=== PATIENT | female | born 1935 | race Two or more races ===

== ENCOUNTER 2021-05-01 16:47 | Inpatient (IN) | payer MEDICARE, MEDICAID ==
[~2021-05-01] VITALS: Ht 167.6 cm; Wt 50.8 kg
[2021-05-01 16:47] VITALS: BP 126/69
[2021-05-01 17:00] VITALS: BP 129/69
[2021-05-01] MEDS ORDERED: PROMETHAZINE HCL 25MG TABLET PO PRN (18:15)
[2021-05-01] MEDS ORDERED: SIMETHICONE 80MG TABLET CHEW PO PRN (18:15)
[2021-05-01] MEDS ORDERED: ACETAMINOPHEN 325MG TABLET PO PRN (18:15)
[2021-05-01] MEDS ORDERED: ALPRAZOLAM 0.25 MG TABLET PO PRN (18:15)
[2021-05-01 20:00] VITALS: BP 123/79
[2021-05-01] MEDS ORDERED: IPRATROPIUM/ALBUTEROL 0.5-3(2.5)MG/3ML NEB HHN SCH (20:00)
[2021-05-01] MEDS: HYDRALAZINE HCL 50MG TABLET PO SCH (21:33)
[2021-05-02] MEDS: IPRATROPIUM/ALBUTEROL 0.5-3(2.5)MG/3ML NEB HHN SCH ×3 (02:28→21:12)
[2021-05-02] MEDS ORDERED: FURO20TA4 PO (04:17)
[2021-05-02] MEDS ORDERED: HYDR-4135 PO (04:17)
[2021-05-02] MEDS ORDERED: TRIA15OI8 TP (04:17)
[2021-05-02] MEDS ORDERED: DEXL30CA3 PO (04:17)
[2021-05-02] MEDS ORDERED: METO-411 PO (04:17)
[2021-05-02] MEDS ORDERED: AMLO10TA80 PO (04:17)
[2021-05-02] MEDS ORDERED: CARD12 PO (04:17)
[2021-05-02] MEDS ORDERED: P20 PO (04:17)
[2021-05-02] MEDS: PANTOPRAZOLE 40MG DR TABLET PO SCH (06:28)
[2021-05-02 06:43] LABS: CHLORIDE 97 mEq/L (98-107)
[2021-05-02 06:56] LABS: HEMATOCRIT. 34.7 % (36.0-48.0); HEMOGLOBIN. 11.4 g/dL (12.0-16.0); MEAN CORPUSCULAR HEMOGLOBIN 25.9 pg (28.0-32.0); MEAN PLATELET VOLUME 7.5 fl (7.4-10.4); PLATELET 311 x1000/uL (130-400); RED BLOOD CELL COUNT 4.39 mill/uL (4.2-5.4); RED CELL DISTRIBUTION WIDTH 16.9 % (11.6-14.6)
[2021-05-02 08:28] VITALS: BP 130/72
[2021-05-02] MEDS ORDERED: ENOXAPARIN 40MG/0.4ML SYR SUBCUT SCH (09:00)
[2021-05-02] MEDS: ASPIRIN 81MG TABLET PO SCH (09:23)
[2021-05-02] MEDS: ENOXAPARIN 30MG/0.3ML SYR SUBCUT SCH (09:23)
[2021-05-02] MEDS: HYDRALAZINE HCL 50MG TABLET PO SCH ×2 (09:24→21:18)
[2021-05-02] MEDS: FUROSEMIDE 40MG TABLET PO SCH (09:24)
[2021-05-02] MEDS: DILTIAZEM HCL 120MG CAPSULE CD 24HR PO SCH (12:57)
[2021-05-02 13:51] LABS: PLATELET ESTIMATE NORMAL
[2021-05-02] MEDS: DIPHENHYDRAMINE 25MG CAPSULE PO PRN (18:08)
[2021-05-02] MEDS ORDERED: CLONIDINE 0.1MG TABLET PO PRN (18:30)
[2021-05-02] MEDS ORDERED: MAGNESIUM/ALUMINUM HYDROXIDE/SIMETHICONE 30ML UDC PO PRN (18:30)
[2021-05-02] MEDS ORDERED: HYDROCODONE/ACETAMINOPHEN 5/325MG TABLET PO PRN (18:30)
[2021-05-02] MEDS ORDERED: ONDANSETRON HCL 4MG/2ML INJ IV PRN (18:30)
[2021-05-02 20:00] VITALS: BP 116/75
[2021-05-03] MEDS: IPRATROPIUM/ALBUTEROL 0.5-3(2.5)MG/3ML NEB HHN SCH ×4 (02:28→21:55)
[2021-05-03] MEDS: PANTOPRAZOLE 40MG DR TABLET PO SCH (06:00)
[2021-05-03 06:25] LABS: CHLORIDE 97 mEq/L (98-107)
[2021-05-03 06:31] LABS: HEMATOCRIT. 36.4 % (36.0-48.0); HEMOGLOBIN. 11.6 g/dL (12.0-16.0); MEAN CORPUSCULAR HEMOGLOBIN 25.6 pg (28.0-32.0); MEAN CORPUSCULAR VOLUME 80.1 fL (81.0-99.0); MEAN PLATELET VOLUME 7.5 fl (7.4-10.4); PHOSPHORUS 3.6 mg/dL (2.5-4.9); PLATELET 344 x1000/uL (130-400); RED BLOOD CELL COUNT 4.54 mill/uL (4.2-5.4); RED CELL DISTRIBUTION WIDTH 16.9 % (11.6-14.6); TOTAL IRON BINDING CAPACITY 369 ug/dL (250-450)
[2021-05-03 06:45] LABS: FERRITIN 141 ng/mL (10-291)
[2021-05-03 06:46] LABS: FOLIC ACID (FOLATE) SERUM >20 ng/mL ng/mL (>5.38)
[2021-05-03 06:57] LABS: VITAMIN B12 SERUM 578 pg/mL (211-911)
[2021-05-03 08:00] VITALS: BP 116/70
[2021-05-03] MEDS: FUROSEMIDE 40MG TABLET PO SCH (09:27)
[2021-05-03] MEDS: FERROUS SULFATE 325MG TABLET PO SCH ×4 (09:27→16:58)
[2021-05-03] MEDS: ASCORBIC ACID 500 MG TABLET PO SCH (09:27)
[2021-05-03] MEDS: HYDRALAZINE HCL 50MG TABLET PO SCH ×2 (09:27→20:37)
[2021-05-03] MEDS: CYANOCOBALAMIN 1000MCG/ML VIAL IM SCH (09:27)
[2021-05-03] MEDS: ASPIRIN 81MG TABLET PO SCH (09:27)
[2021-05-03] MEDS: ENOXAPARIN 30MG/0.3ML SYR SUBCUT SCH (09:28)
[2021-05-03] MEDS: DILTIAZEM HCL 120MG CAPSULE CD 24HR PO SCH (12:24)
[2021-05-03 15:36] LABS: PLATELET ESTIMATE NORMAL
[2021-05-03] MEDS: BENZONATATE 100MG CAPSULE PO PRN (16:58)
[2021-05-03 20:00] VITALS: BP 119/74
[2021-05-04] MEDS: IPRATROPIUM/ALBUTEROL 0.5-3(2.5)MG/3ML NEB HHN SCH ×4 (01:49→20:52)
[2021-05-04] MEDS: PANTOPRAZOLE 40MG DR TABLET PO SCH (05:40)
[2021-05-04 08:00] VITALS: BP 117/71
[2021-05-04 09:05] LABS: HEMATOCRIT. 34.3 % (36.0-48.0); MEAN CORPUSCULAR HEMOGLOBIN 25.5 pg (28.0-32.0); MEAN CORPUSCULAR VOLUME 79.8 fL (81.0-99.0); MEAN PLATELET VOLUME 7.7 fl (7.4-10.4); PLATELET 317 x1000/uL (130-400); RED CELL DISTRIBUTION WIDTH 16.6 % (11.6-14.6)
[2021-05-04] MEDS: FERROUS SULFATE 325MG TABLET PO SCH ×2 (10:12→15:43)
[2021-05-04] MEDS: DILTIAZEM HCL 120MG CAPSULE CD 24HR PO SCH (10:13)
[2021-05-04] MEDS: FUROSEMIDE 40MG TABLET PO SCH (10:13)
[2021-05-04] MEDS: HYDRALAZINE HCL 50MG TABLET PO SCH ×2 (10:14→21:41)
[2021-05-04] MEDS: ASPIRIN 81MG TABLET PO SCH (10:14)
[2021-05-04] MEDS: ASCORBIC ACID 500 MG TABLET PO SCH (10:15)
[2021-05-04] MEDS: ENOXAPARIN 30MG/0.3ML SYR SUBCUT SCH (10:15)
[2021-05-04] MEDS: CYANOCOBALAMIN 1000MCG/ML VIAL IM SCH (10:15)
[2021-05-04 16:05] LABS: PLATELET ESTIMATE NORMAL
[2021-05-04] MEDS: DIPHENHYDRAMINE 25MG CAPSULE PO PRN (17:32)
[2021-05-04 20:00] VITALS: BP 130/71
[2021-05-04 23:08] VITALS: BP 130/71
[2021-05-05] MEDS: DIPHENHYDRAMINE 25MG CAPSULE PO PRN ×3 (01:29→22:27)
[2021-05-05] MEDS: IPRATROPIUM/ALBUTEROL 0.5-3(2.5)MG/3ML NEB HHN SCH ×4 (02:43→22:14)
[2021-05-05] MEDS: PANTOPRAZOLE 40MG DR TABLET PO SCH (06:07)
[2021-05-05 08:00] VITALS: BP 104/70
[2021-05-05] MEDS: ASPIRIN 81MG TABLET PO SCH (10:10)
[2021-05-05] MEDS: ASCORBIC ACID 500 MG TABLET PO SCH (10:10)
[2021-05-05] MEDS: ENOXAPARIN 30MG/0.3ML SYR SUBCUT SCH (10:10)
[2021-05-05] MEDS: FUROSEMIDE 40MG TABLET PO SCH (10:10)
[2021-05-05] MEDS: DILTIAZEM HCL 120MG CAPSULE CD 24HR PO SCH (10:14)
[2021-05-05] MEDS: FERROUS SULFATE 325MG TABLET PO SCH ×4 (10:15→17:47)
[2021-05-05] MEDS: HYDRALAZINE HCL 50MG TABLET PO SCH ×2 (10:15→21:10)
[2021-05-05] MEDS: CYANOCOBALAMIN 1000MCG/ML VIAL IM SCH (10:47)
[2021-05-05 20:00] VITALS: BP 134/84
[2021-05-06] MEDS: IPRATROPIUM/ALBUTEROL 0.5-3(2.5)MG/3ML NEB HHN SCH ×2 (01:37→21:56)
[2021-05-06] MEDS: PANTOPRAZOLE 40MG DR TABLET PO SCH (06:23)
[2021-05-06 07:47] VITALS: BP 121/77
[2021-05-06] MEDS: ASCORBIC ACID 500 MG TABLET PO SCH (09:09)
[2021-05-06] MEDS: HYDRALAZINE HCL 50MG TABLET PO SCH ×2 (09:09→21:17)
[2021-05-06] MEDS: DILTIAZEM HCL 120MG CAPSULE CD 24HR PO SCH (09:09)
[2021-05-06] MEDS: DIPHENHYDRAMINE 25MG CAPSULE PO PRN ×2 (09:10→21:17)
[2021-05-06] MEDS: FERROUS SULFATE 325MG TABLET PO SCH ×3 (09:10→18:36)
[2021-05-06] MEDS: ASPIRIN 81MG TABLET PO SCH (09:10)
[2021-05-06] MEDS: FUROSEMIDE 40MG TABLET PO SCH (09:10)
[2021-05-06] MEDS: ENOXAPARIN 30MG/0.3ML SYR SUBCUT SCH (09:11)
[2021-05-06 20:00] VITALS: BP 116/68
[2021-05-07] MEDS: IPRATROPIUM/ALBUTEROL 0.5-3(2.5)MG/3ML NEB HHN SCH ×4 (02:25→21:24)
[2021-05-07] MEDS: PANTOPRAZOLE 40MG DR TABLET PO SCH (06:06)
[2021-05-07 08:27] VITALS: BP 117/68
[2021-05-07] MEDS: FERROUS SULFATE 325MG TABLET PO SCH ×3 (08:34→18:03)
[2021-05-07] MEDS: FUROSEMIDE 40MG TABLET PO SCH (08:34)
[2021-05-07] MEDS: ASCORBIC ACID 500 MG TABLET PO SCH (08:34)
[2021-05-07] MEDS: ASPIRIN 81MG TABLET PO SCH (08:34)
[2021-05-07] MEDS: DILTIAZEM HCL 120MG CAPSULE CD 24HR PO SCH (08:35)
[2021-05-07] MEDS: HYDRALAZINE HCL 50MG TABLET PO SCH ×2 (08:36→20:59)
[2021-05-07] MEDS: ENOXAPARIN 30MG/0.3ML SYR SUBCUT SCH (08:38)
[2021-05-07 20:00] VITALS: BP 131/72
[2021-05-07] MEDS: DIPHENHYDRAMINE 25MG CAPSULE PO PRN (20:59)
[2021-05-08] MEDS: IPRATROPIUM/ALBUTEROL 0.5-3(2.5)MG/3ML NEB HHN SCH ×4 (02:40→21:19)
[2021-05-08] MEDS: PANTOPRAZOLE 40MG DR TABLET PO SCH (06:06)
[2021-05-08 07:37] LABS: HEMATOCRIT. 34.7 % (36.0-48.0); HEMOGLOBIN. 11.3 g/dL (12.0-16.0); MEAN CORPUSCULAR HEMOGLOBIN 25.9 pg (28.0-32.0); MEAN CORPUSCULAR VOLUME 79.6 fL (81.0-99.0); MEAN PLATELET VOLUME 7.7 fl (7.4-10.4); PLATELET 332 x1000/uL (130-400); RED BLOOD CELL COUNT 4.36 mill/uL (4.2-5.4); RED CELL DISTRIBUTION WIDTH 16.9 % (11.6-14.6)
[2021-05-08 08:00] VITALS: BP 130/79
[2021-05-08] MEDS: ASCORBIC ACID 500 MG TABLET PO SCH (08:47)
[2021-05-08] MEDS: ASPIRIN 81MG TABLET PO SCH (08:47)
[2021-05-08] MEDS: ENOXAPARIN 30MG/0.3ML SYR SUBCUT SCH (08:47)
[2021-05-08] MEDS: HYDRALAZINE HCL 50MG TABLET PO SCH ×2 (08:47→21:23)
[2021-05-08] MEDS: FERROUS SULFATE 325MG TABLET PO SCH ×3 (08:48→18:10)
[2021-05-08] MEDS: DILTIAZEM HCL 120MG CAPSULE CD 24HR PO SCH (08:48)
[2021-05-08] MEDS: FUROSEMIDE 40MG TABLET PO SCH (08:48)
[2021-05-08 20:00] VITALS: BP 116/68
[2021-05-08 20:15] LABS: PLATELET ESTIMATE NORMAL
[2021-05-08] MEDS: GUAIFENESIN 600MG ER TABLET PO SCH (21:23)
[2021-05-08] MEDS: DIPHENHYDRAMINE 25MG CAPSULE PO PRN (21:28)
[2021-05-09] MEDS: PANTOPRAZOLE 40MG DR TABLET PO SCH (07:06)
[2021-05-09 07:36] VITALS: BP 120/72
[2021-05-09] MEDS: IPRATROPIUM/ALBUTEROL 0.5-3(2.5)MG/3ML NEB HHN SCH ×3 (08:16→22:05)
[2021-05-09] MEDS: HYDRALAZINE HCL 50MG TABLET PO SCH ×2 (08:41→21:25)
[2021-05-09] MEDS: FUROSEMIDE 40MG TABLET PO SCH (08:42)
[2021-05-09] MEDS: ASPIRIN 81MG TABLET PO SCH (08:42)
[2021-05-09] MEDS: FERROUS SULFATE 325MG TABLET PO SCH ×3 (08:42→18:59)
[2021-05-09] MEDS: DILTIAZEM HCL 120MG CAPSULE CD 24HR PO SCH (08:42)
[2021-05-09] MEDS: ASCORBIC ACID 500 MG TABLET PO SCH (08:42)
[2021-05-09] MEDS: GUAIFENESIN 600MG ER TABLET PO SCH ×2 (08:42→21:00)
[2021-05-09] MEDS: ENOXAPARIN 30MG/0.3ML SYR SUBCUT SCH (08:43)
[2021-05-09] MEDS: BENZONATATE 100MG CAPSULE PO PRN ×2 (12:44→21:26)
[2021-05-09 15:09] LABS: 25-HYDROXY VITAMIN D3 27 ng/mL (.)
[2021-05-09] MEDS ORDERED: ERGOCALCIFEROL 50000UNITS CAPSULE PO SCH (16:15)
[2021-05-09 20:00] VITALS: BP 118/68
[2021-05-09] MEDS: DIPHENHYDRAMINE 25MG CAPSULE PO PRN (21:23)
[2021-05-10] MEDS: IPRATROPIUM/ALBUTEROL 0.5-3(2.5)MG/3ML NEB HHN SCH ×2 (03:28→07:55)
[2021-05-10] MEDS: PANTOPRAZOLE 40MG DR TABLET PO SCH (06:37)
[2021-05-10 08:00] VITALS: BP 124/73
[2021-05-10] MEDS: FUROSEMIDE 40MG TABLET PO SCH (08:33)
[2021-05-10] MEDS: FERROUS SULFATE 325MG TABLET PO SCH ×2 (08:33→13:50)
[2021-05-10] MEDS: DIPHENHYDRAMINE 25MG CAPSULE PO PRN (08:33)
[2021-05-10] MEDS: HYDRALAZINE HCL 50MG TABLET PO SCH (08:33)
[2021-05-10] MEDS: GUAIFENESIN 600MG ER TABLET PO SCH (08:33)
[2021-05-10] MEDS: ASPIRIN 81MG TABLET PO SCH (08:33)
[2021-05-10] MEDS: ASCORBIC ACID 500 MG TABLET PO SCH (08:34)
[2021-05-10] MEDS: ENOXAPARIN 30MG/0.3ML SYR SUBCUT SCH (08:34)
[2021-05-10] MEDS: DILTIAZEM HCL 120MG CAPSULE CD 24HR PO SCH (08:34)
[2021-05-10 13:08] VITALS: BP 124/73
== END 2021-05-10 15:32 | disposition home health service (06) | DRG 189 ==
PROVIDERS: ADMIT Physical Medicine & Rehabilitation Spinal Cord Injury Medicine; ATTEND Internal Medicine Critical Care Medicine
DX: J96.01 Acute respiratory failure with hypoxia (principal); J18.9 Pneumonia, unspecified organism; I50.33 Acute on chronic diastolic (congestive) heart failure; E46 Unspecified protein-calorie malnutrition; Z68.1 Body mass index [BMI] 19.9 or less, adult; I11.0 Hypertensive heart disease with heart failure; I48.0 Paroxysmal atrial fibrillation; I73.9 Peripheral vascular disease, unspecified; E73.9 Lactose intolerance, unspecified; R53.81 Other malaise; R26.9 Unspecified abnormalities of gait and mobility; K25.9 Gastric ulcer, unspecified as acute or chronic, without hemorrhage or perforation; F06.34 Mood disorder due to known physiological condition with mixed features; F06.8 Other specified mental disorders due to known physiological condition; L29.9 Pruritus, unspecified; E53.8 Deficiency of other specified B group vitamins; E61.1 Iron deficiency; E55.9 Vitamin D deficiency, unspecified; Z82.49 Family history of ischemic heart disease and other diseases of the circulatory system; Z86.16 Personal history of COVID-19; Z87.01 Personal history of pneumonia (recurrent); Z87.11 Personal history of peptic ulcer disease; Z95.5 Presence of coronary angioplasty implant and graft; Z87.891 Personal history of nicotine dependence
CPT/HCPCS: 36415; 80048; 80053; 82140; 82306; 82607; 82728; 82746; 82962; 83540; 83550; 83735; 84100; 84134; 84443; 85025; 93970; 94618; 94640; 97110; 97116; 97162; 97166; 97530; 97535; J1650; J3420; Q0163